=== PATIENT | female | born 1990 | race Caucasian/White ===

== ENCOUNTER 2019-01-19 03:20 | Emergency (ER) | payer OTHER ==
[2019-01-19 04:21] VITALS: BP 107/54; PULSE 91; TEMP 98.3; BMI 19.8
[2019-01-19] MEDS ORDERED: AMOX TR/POT CLAV 875MG/125MG TABLETS (FP) PO ONE (04:30)
[2019-01-19] MEDS ORDERED: NAPROXEN 500 MG TABLET (FP) PO ONE (04:31)
--- NOTE | 2019-01-19 04:36 | PDOC ---
History of Present Illness - General Chief Complaint: Toothache Stated Complaint: TOOTHACHE Time Seen by Provider: 01/19/19 04:24 - History of Present Illness Initial Comments: 01/19/19 04:31 28 F with h/o asthma presenting to ED with 2days of toothache. Pt states that she felt pain around her L upper molars last night. She took a percocet and the pain subsided. However, tonight, the pain recurred. Pt also endorses swelling around the tooth but no drainage. Denies any F/C. Has not had any issues with this tooth previously. Pt states she has a dentist, whom she plans to see this morning at 9AM. Past History - Past Medical History Allergies/Adverse Reactions: Allergies Allergy/AdvReac Type Severity Reaction Status Date / Time kiwi Allergy Intermediate Swelling Verified 01/19/19 04:21 No Known Drug Allergies Allergy Verified 01/19/19 04:21 Home Medications: Ambulatory Orders Albuterol Sulfate Inhaler - [Ventolin HFA Inhaler -] 2 inh IH Q4H #0 inh Iron 1 tab PO DAILY #0 tablet 02/02/13 Vitamins ([facility]) - 1 tab PO DAILY #0 tablet 02/02/13 Amoxicillin - [Amoxicillin 500mg Capsule -] 1,000 mg PO DAILY #18 capsule Amoxicillin - [Amoxicillin 500mg Capsule -] 1,000 mg PO DAILY #20 capsule Asthma: Yes Cancer: No Cardiac Disorders: No Diabetes: No HTN: No Seizures: No Thyroid Disease: No - Suicide/Smoking/Psychosocial Hx Smoking Status: No Smoking History: Never smoked Have you smoked in the past 12 months: No Information on smoking cessation initiated: No Hx Alcohol Use: No Drug/Substance Use Hx: No Hx Substance Use Treatment: No Review of Systems - Review of Systems Comments:: 01/19/19 04:32 "GENERAL/CONSTITUTIONAL: No fever or chills. No weakness. HEAD, EYES, EARS, NOSE AND THROAT: + toothache, No change in vision. No ear pain or discharge. No sore throat. CARDIOVASCULAR: No chest pain, no shortness of breath, no loss of consciousness RESPIRATORY: No cough, wheezing, or hemoptysis. GASTROINTESTINAL: No nausea, vomiting, diarrhea or constipation. GENITOURINARY: No dysuria, frequency, or change in urination. MUSCULOSKELETAL: No joint or muscle swelling or pain. No neck or back pain. SKIN: No rash NEUROLOGIC: No vertigo, no change in strength/sensation. ENDOCRINE: No increased thirst. No abnormal weight change. HEMATOLOGIC/LYMPHATIC: No anemia, easy bleeding, or history of blood clots. ALLERGIC/IMMUNOLOGIC: No hives or skin allergy. *Physical Exam - Vital Signs Last Vital Signs Temp Pulse Resp BP Pulse Ox 98.3 F 91 H 16 107/54 L 98 01/19/19 03:20 01/19/19 03:20 01/19/19 03:20 01/19/19 03:20 01/19/19 03:20 - Physical Exam Comments: 01/19/19 04:33 "GENERAL: Awake, alert, and fully oriented, in no acute distress. HEAD: No signs of trauma EYES: PERRLA, EOMI, sclera anicteric, conjunctiva clear ENT: + Tooth 16 with large mikey, surrounding gums mildly erythematous and edematous, no bleeding, no drainage, no exposure of dentin or pulp, Auricles normal inspection, hearing grossly normal, nares patent, oropharynx clear without exudates. Moist mucosa NECK: Nontender, no stepoffs, Normal ROM, supple, no lymphadenopathy, JVD, or masses LUNGS: Breath sounds equal, clear to auscultation bilaterally. No wheezes, and no crackles HEART: Regular rate and rhythm, normal S1 and S2, no murmurs, rubs or gallops ABDOMEN: Soft, nontender, normoactive bowel sounds. No guarding, no rebound. No masses EXTREMITIES: Normal range of motion, no edema. No clubbing or cyanosis. No cords, erythema, or tenderness NEUROLOGICAL: Cranial nerves II through XII intact. 5/5 strength and sensation in all extremities, Normal speech, normal gait, normal cerebellar function SKIN: Warm, Dry, normal turgor, no rashes or lesions noted. Medical Decision Making - Medical Decision Making 01/19/19 04:34 28 F with infection of tooth 16 2/2 mikey with surrounding gingivitis. No purulent drainage or other sign of suppurative infection. - Augmentin 875 BID - Naproxen - F/u dentist today Pt is well appearing, with normal vitals. Clinically stable for DC at this time. I discussed the physical exam findings, ancillary test results and final diagnoses with the patient. I answered all of the patient's questions. The patient was satisfied with the care received and felt comfortable with the discharge plan and treatment plan. The patient agrees to follow up with the primary care physician within 24-72 hours. *DC/Admit/Observation/Transfer Diagnosis at time of Disposition: Tooth infection - Discharge Dispostion Disposition: HOME Condition at time of disposition: Fair - Referrals - Patient Instructions Printed Discharge Instructions: DI for Tooth Decay Additional Instructions: You have a tooth infection. Take the antibiotics as prescribed. You must see your dentist TODAY to have your tooth infection treated. If you experience worsening pain, swelling, drainage, fevers, or any other concerning symptoms, return to the ER immediately. - Post Discharge Activity - Attestations Physician Attestion: 01/19/19 04:36 I, Dr. Abelino Fischer MD, attest that this document has been prepared under my direction and personally reviewed by me in its entirety. I further attest, that it accurately reflects all work, treatment, procedures and medical decision -making performed by me.
[2019-01-19] MEDS ORDERED: NAPROXEN 500 MG TABLET (FP) ONE (04:44)
[2019-01-19] MEDS ORDERED: AMOX TR/POT CLAV 875MG/125MG TABLETS (FP) ONE (04:44)
== END 2019-01-19 05:00 | disposition home or self-care (01) ==
LOC: JER 03:20
DX: K08.89 Other specified disorders of teeth and supporting structures (principal); J45.909 Unspecified asthma, uncomplicated
CPT/HCPCS: 99281-25

== ENCOUNTER 2020-06-06 18:09 | Emergency (ER) | payer OTHER ==
[2020-06-06 18:32] VITALS: BP 100/51; PULSE 81; TEMP 97.6; BMI 21.3
[2020-06-06 20:25] LABS: URINE APPEARANCE CLEAR; URINE BILIRUBIN NEGATIVE (NEGATIVE); URINE COLOR YELLOW; URINE GLUCOSE (UA) NEGATIVE (NEGATIVE); URINE KETONE TRACE (NEGATIVE); URINE LEUK ESTERASE NEGATIVE (NEGATIVE); URINE NITRITE NEGATIVE (NEGATIVE); URINE PROTEIN NEGATIVE (NEGATIVE); URINE UROBILINOGEN 0.2 mg/dL (0.2-1.0)
[2020-06-06 20:28] LABS: HCG,QUALITATIVE URINE Negative
[2020-06-06] MEDS ORDERED: diazePAM 5 MG TABLET PO ONE (20:31)
[2020-06-06] MEDS ORDERED: LIDOCAINE 5% TOPICAL PATCH TP ONE (20:31)
[2020-06-06] MEDS ORDERED: KETOROLAC TROMETHAMINE 30 MG/1 ML VIAL IM ONE (20:32)
[2020-06-06] MEDS ORDERED: KETOROLAC TROMETHAMINE 30 MG/1 ML VIAL ONE (20:39)
[2020-06-06] MEDS ORDERED: LIDOCAINE 5% TOPICAL PATCH ONE (20:39)
[2020-06-06] MEDS ORDERED: diazePAM 5 MG TABLET ONE (20:39)
[2020-06-06] MEDS ORDERED: LIDOCAINE PATCH REMOVAL MC SCH (22:00)
== END 2020-06-06 21:11 | disposition home or self-care (01) ==
LOC: JER 18:09
PROC: 3E0233Z Introduction of Anti-inflammatory into Muscle, Percutaneous Approach (ICD-10-PCS; principal; 2020-06-06)
DX: M54.42 Lumbago with sciatica, left side (principal)
CPT/HCPCS: 81003; 84703; 99284-25